=== PATIENT | male | born 1985 | race American Indian/Alaskan Native ===

== ENCOUNTER 2021-12-20 17:27 | Emergency (ER) | payer SELFPAY | END 2021-12-21 17:58 | disposition left against medical advice (07) | LOC: ED 17:27 | DX: R68.84 Jaw pain (principal); Z53.21 Procedure and treatment not carried out due to patient leaving prior to being seen by health care provider ==

== ENCOUNTER 2021-12-21 16:11 | Emergency (ER) | payer SELFPAY | END 2021-12-21 16:20 | disposition left against medical advice (07) | LOC: ED 16:11 | DX: R68.84 Jaw pain (principal); Z53.21 Procedure and treatment not carried out due to patient leaving prior to being seen by health care provider ==